=== PATIENT | male | born 1975 | race Caucasian/White ===

== ENCOUNTER 2021-10-06 17:32 | Observation (INO) ==
[2021-10-06] MEDS ORDERED: Melatonin 3 MG TABLET PO PRN (20:55)
[2021-10-06] MEDS ORDERED: Ondansetron 4 MG/2 ML VIAL IVP PRN (20:55)
[2021-10-06] MEDS ORDERED: Naloxone 0.4 MG/ML INJ IVP PRN (20:55)
[2021-10-06] MEDS ORDERED: Acetaminophen 325 MG TABLET PO PRN (20:55)
[2021-10-06] MEDS ORDERED: *HR* Heparin 5,000 UNIT/ML VIAL IVP PRN ×2 (20:58)
[2021-10-06] MEDS: Heparin 25,000UNIT/250ML 1/2NS 25,000 UNIT/250 ML IV.SOLN IVC SCH (23:13)
[2021-10-07] MEDS ORDERED: Isovue-370 500 ML BOTTLE IVP ONE (00:23)
[2021-10-07 04:20] VITALS: TEMP 98.9; O2SAT 94
[2021-10-07 06:39] VITALS: BP 126/78; PULSE 83
[2021-10-07] MEDS: Heparin 25,000UNIT/250ML 1/2NS 25,000 UNIT/250 ML IV.SOLN IVC SCH (07:41)
== END 2021-10-07 08:27 | disposition short-term general hospital (02) ==
LOC: 2NENU
PROVIDERS: ADMIT Internal Medicine; ATTEND Internal Medicine